=== PATIENT | female | born 1990 | race Caucasian/White ===

== ENCOUNTER 2017-05-05 08:59 | Inpatient (IN) | payer BC ==
[2017-05-14 23:10] VITALS: BMI 38.3
[2017-05-15] MEDS ORDERED: Zolpidem Tartrate 5 MG TAB PO PRN (00:04)
[2017-05-15] MEDS ORDERED: Ondansetron HCl/PF 4 MG/2 ML Vial IVP PRN ×2 (00:04→19:57)
[2017-05-15] MEDS ORDERED: Promethazine HCl 25 MG/ML VIAL IM PRN ×2 (00:04→19:57)
[2017-05-15 00:27] LABS: Mean Platelet Volume 7.5 fL (7.4-10.4); Red Blood Cell (RBC) Count 3.94 mill/uL (4.20-5.40); White Blood Cell (WBC) Count 11.2 thou/uL (4.8-10.8)
[2017-05-15] MEDS: Lactated Ringer's 1,000 ML IV SCH ×3 (08:00→20:20)
[2017-05-15] MEDS ORDERED: LR 500 ML/Oxytocin 10 units 500 ML ONE (08:13)
[2017-05-15] MEDS ORDERED: LR / Pitocin 40 units/1000 ml 1,000 ML ONE (12:48)
[2017-05-15] MEDS ORDERED: Lidocaine 1% (PF) 30 ML VIAL ONE (12:48)
[2017-05-15] MEDS ORDERED: Fentanyl 4 mcg/Marc 0.1% Cadd 100 ML ONE (19:23)
[2017-05-15] MEDS ORDERED: Eucerin (Mineral Oil/Petrolatum,White) 30 gm Jar TOP PRN (19:57)
[2017-05-15] MEDS ORDERED: ePHEDrine/0.9% NaCl/PF SYRINGE 50 mg/10 ml SLOW IVP PRN (19:57)
[2017-05-15] MEDS ORDERED: diphenhydrAMINE 50 MG/ML VIAL IVP PRN (19:57)
[2017-05-15] MEDS ORDERED: Lactated Ringer's 500 ML IV PRN (19:57)
[2017-05-15] MEDS ORDERED: Acetaminophen 325 MG TAB PO PRN (19:57)
[2017-05-15] MEDS ORDERED: Naloxone HCl 0.4 mg/ml Vial IVP PRN ×2 (19:57)
[2017-05-15] MEDS ORDERED: Fentanyl 4mcg/Marcaine 0.1% Cassette 100 ML EPIDURAL SCH (20:00)
[2017-05-15] MEDS ORDERED: Communication Order-Pharmacy FS SCH (20:00)
[2017-05-15] MEDS ORDERED: LR / Pitocin 40 units/1000 ml 40 UNITS/1,000 ML BAG IV SCH (23:45)
[2017-05-15] MEDS ORDERED: LR 500 ML/Oxytocin 10 units 500 ML IV SCH ×2 (23:45)
[2017-05-15] MEDS ORDERED: Lidocaine 1% (PF) 30 ML VIAL SC PRN (23:45)
[2017-05-15] MEDS ORDERED: Misoprostol 200 MCG TAB RC PRN (23:45)
[2017-05-15] MEDS ORDERED: Carboprost 250 MCG/ML AMP IM PRN (23:45)
[2017-05-15] MEDS ORDERED: Ibuprofen 800 MG TAB PO PRN (23:45)
[2017-05-16] MEDS ORDERED: Bupivacaine 0.25% HCL 30 ML VIAL ONE (01:00)
[2017-05-16] MEDS ORDERED: Sodium Chloride 0.9% 1,000 ML IV SCH (01:15)
[2017-05-16 03:21] LABS: Hematocrit 26.9 % (36.0-47.0); Mean Platelet Volume 7.1 fL (7.4-10.4); Red Blood Cell (RBC) Count 3.03 mill/uL (4.20-5.40); White Blood Cell (WBC) Count 28.7 thou/uL (4.8-10.8)
[2017-05-16 03:24] LABS: Fibrinogen 445 mg/dL (253-463); PTT 26.1 SEC (22.9-36.1); Prothrombin Time 13.3 SEC (12.0-14.7)
[2017-05-16] MEDS ORDERED: LR / Pitocin 40 units/1000 ml 1,000 ML IV SCH (03:47)
[2017-05-16] MEDS ORDERED: Adacel (T-DAP) 0.5 ML VIAL IM ONE (03:47)
[2017-05-16] MEDS ORDERED: diphenhydrAMINE 25 MG CAP PO PRN (03:47)
[2017-05-16] MEDS ORDERED: Bisacodyl 10 MG SUPP PR PRN (03:47)
[2017-05-16] MEDS ORDERED: Lanolin Ointment 7 GM TUBE TOP PRN (03:47)
[2017-05-16] MEDS ORDERED: Milk Of Magnesia 30 ML UDCUP PO PRN (03:47)
[2017-05-16] MEDS ORDERED: Ondansetron HCl/PF 4 MG/2 ML Vial IVP PRN (03:47)
[2017-05-16] MEDS: Ibuprofen 800 MG TAB PO SCH ×3 (04:36→21:42)
[2017-05-16] MEDS: HYDROcodone/Acetaminophen 5/325 mg Tablet PO PRN ×2 (08:38→18:51)
[2017-05-16] MEDS: Prenatal Vitamin 1 TAB PO SCH (08:38)
[2017-05-16] MEDS: Ferrous Sulfate 325 MG TAB PO SCH ×2 (08:38→17:03)
[2017-05-16] MEDS: Docusate (Surfak) 240 MG CAP PO SCH ×2 (08:39→21:42)
--- NOTE | 2017-05-16 09:59 | OP ---
DELIVERY SUMMARY DATE OF DELIVERY: 05/16/2017 PREOPERATIVE DIAGNOSIS: A 41-week intrauterine . POSTOPERATIVE DIAGNOSES: A 41-week intrauterine as well as bradycardia, vaginal and labial lacerations and hemorrhage. PROCEDURE PERFORMED: A vacuum assisted vaginal delivery, laceration repair, and management of postp artum hemorrhage. SURGEON: Phuong Varela M.D. ANESTHESIA: Epidural. ESTIMATED BLOOD LOSS: 1000 mL. BRIEF DELIVERY SUMMARY: This is a 27-year-old G1 now P1 who presented for induction of labor for po st-dates. She received a balloon on the night of the and responded quite well. She was 5 cm o n the morning of the and was started on Pitocin. She progressed slowly throughout the course o f the day and in the evening opted for epidural anesthesia after which time her labor progressed thr oughout, more quickly. She progressed to complete and pushing. well being throughout the lab or course was reassuring. She did have some variable decelerations, but nothing concerning. She be nina pushing and during the course of pushing, she started to have some additional deep variable dece lerations down into the 80s and 90s, lasting 30 seconds to a minute associated with pushing. I arri kun on labor and delivery, we continued pushing at which time the decelerations became more prolonge d and she had an episode of 5 to 6 minutes of bradycardia in the 80s and 90s, at which time, v acuum assisted delivery was attempted. The station at the time of application of the vacuum w as +3 to +4, the vacuum was applied, taking care to exclude maternal tissues as well as to exclude t he scalp clip that was on place, suction was taken into the yellow zone. With the next contra ction, downward traction was applied, after suction was taken into the green zone. The vacuum was a pplied through a total of one contraction, three pushes with concurrent pulling effecting delivery o f the vertex. The vacuum was then promptly removed. Shoulders and body easily followed and t he was placed on mother's abdomen. Apgars were 8 at 1 minute and 9 at 5 minutes. At the parents request, the umbilical cord was delayed and being clamped, but was doubly clamped and cu t eventually and the infant was taken to the warmer. Attention was turned to mom and was having jayant e rather brisk vaginal bleeding. Placenta delivered spontaneously and intact with a 3-vessel umbili bucky cord followed by large gush of blood. This improved with bimanual massage; however, anytime I l et go of the uterus, it became boggy and the bleeding picked up again. She was given 800 mcg of Cyt otec as well as a dose of Methergine and a low dose of Hemabate after which the uterine tone respond ed quite well. She also had bilateral labial lacerations, one of which had an arterial component as well as bilateral posterior vaginal lacerations not involving the perineum. Also one of which have an arterial component these were quickly sutured to get the bleeding under control and then sutured in normal running fashion using 2-0 Vicryl suture for all 4 repairs with excellent hemostasis as th e end result. During the course of her bleeding, a second IV was started. Labs were sent. Initial ly her blood pressure shortly after delivery was in the 80s/40s with a pulse little over 110. She h as been bolused IV fluid at that point in time Pitocin through one IV and a second IV was started wi th normal saline being bolus as well after which time her blood pressures came up into the 100s over the 50s to 60s and her pulse came down into the 90s, again the bleeding came under control with all of the above measures. Mom and baby were left with the nurse in excellent condition and attempting to breast feed.
[2017-05-16] MEDS ORDERED: Benzocaine/Menthol 20-0.5% 60 ML CAN TOP PRN (12:22)
[2017-05-17 00:12] VITALS: TEMP 98.3
[2017-05-17 05:12] LABS: Hematocrit 21.2 % (36.0-47.0); Mean Platelet Volume 6.6 fL (7.4-10.4); Red Blood Cell (RBC) Count 2.35 mill/uL (4.20-5.40); White Blood Cell (WBC) Count 15.2 thou/uL (4.8-10.8)
[2017-05-17] MEDS: Ibuprofen 800 MG TAB PO SCH ×2 (06:04→14:26)
[2017-05-17 08:24] VITALS: BP 97/54
[2017-05-17] MEDS: Ferrous Sulfate 325 MG TAB PO SCH (08:52)
[2017-05-17] MEDS: Prenatal Vitamin 1 TAB PO SCH (08:52)
[2017-05-17] MEDS: Docusate (Surfak) 240 MG CAP PO SCH (08:52)
== END 2017-05-17 17:09 | disposition home or self-care (01) | DRG 768 ==
LOC: EDSTATUS 13:29 → L&D 05-14 22:18 → 3SW 05-16 03:21
PROVIDERS: ADMIT Family Medicine; ATTEND Family Medicine
PROC: 10D07Z6 Extraction of Products of Conception, Vacuum, Via Natural or Artificial Opening (ICD-10-PCS; principal; 2017-05-15)
PROC: 0W3R7ZZ Control Bleeding in Genitourinary Tract, Via Natural or Artificial Opening (ICD-10-PCS; 2017-05-15)
PROC: 0KQM0ZZ Repair Perineum Muscle, Open Approach (ICD-10-PCS; 2017-05-15)
PROC: 0UQG7ZZ Repair Vagina, Via Natural or Artificial Opening (ICD-10-PCS; 2017-05-15)
PROC: 0U7C7ZZ Dilation of Cervix, Via Natural or Artificial Opening (ICD-10-PCS; 2017-05-15)
PROC: 3E0P3VZ Introduction of Hormone into Female Reproductive, Percutaneous Approach (ICD-10-PCS; 2017-05-15)
DX: O48.0 Post-term pregnancy (principal); O71.4 Obstetric high vaginal laceration alone; O72.1 Other immediate postpartum hemorrhage; O70.1 Second degree perineal laceration during delivery; O76 Abnormality in fetal heart rate and rhythm complicating labor and delivery; Z3A.41 41 weeks gestation of pregnancy; Z37.0 Single live birth; O63.1 Prolonged second stage (of labor)
CPT/HCPCS: 36415; 85027; 85049; 85300; 85362; 85379; 85384; 85610; 85730; 86780; 87340; C1726; J0595; J2001; J2210; J3490; J7120; S0020

== ENCOUNTER 2018-10-20 02:58 | Inpatient (IN) | payer OTHER ==
[2018-10-20 03:29] VITALS: BMI 37.5
[2018-10-20] MEDS ORDERED: Butorphanol Tartrate 1 MG/ML VIAL SLOW IVP PRN (03:47)
[2018-10-20] MEDS ORDERED: Ondansetron PF 4 MG/2 ML Vial IVP PRN ×2 (03:47→05:15)
[2018-10-20] MEDS ORDERED: Promethazine HCl 25 MG/ML VIAL IM PRN ×2 (03:47→05:15)
[2018-10-20] MEDS ORDERED: Lactated Ringer's 1,000 ML IV SCH (03:47)
[2018-10-20] MEDS: Lactated Ringer's 1,000 ML IV SCH ×2 (04:05→15:54)
[2018-10-20 04:17] LABS: Hemoglobin 11.8 g/dL (12.0-16.0); Mean Corpuscular Hemoglobin 30.1 pg (27.0-31.0); Mean Corpuscular Volume 85.9 fL (78.0-98.0); Platelet Count 206 thou/uL (130-400); Red Blood Cell (RBC) Count 3.91 mill/uL (4.20-5.40); White Blood Cell (WBC) Count 13.2 thou/uL (4.8-10.8)
[2018-10-20] MEDS ORDERED: Fentanyl 4 mcg/Bup 0.1% Cadd 100 ML ONE (04:22)
[2018-10-20 04:53] LABS: Hep B Surf Ag Non-Reactive S/CO (NonReactive)
[2018-10-20 04:54] LABS: Syphilis Antibody Nonreactive (Nonreactive); Syphilis Antibody Index 0.02 S/CO (<1.00 Non-Reactive)
[2018-10-20] MEDS ORDERED: Acetaminophen 325 MG TAB PO PRN (05:15)
[2018-10-20] MEDS ORDERED: Communication Order-Pharmacy FS SCH (05:15)
[2018-10-20] MEDS ORDERED: Naloxone HCl 0.4 mg/ml Vial IVP PRN ×2 (05:15)
[2018-10-20] MEDS ORDERED: Eucerin (Mineral Oil/Petrolatum,White) 30 gm Jar TOP PRN (05:15)
[2018-10-20] MEDS ORDERED: diphenhydrAMINE 50 MG/ML VIAL IVP PRN (05:15)
[2018-10-20] MEDS ORDERED: ePHEDrine/0.9% NaCl/PF SYRINGE 50 mg/10 ml SLOW IVP PRN (05:15)
[2018-10-20] MEDS ORDERED: Fentanyl 4 mcg/Bupivacaine 0.1% Cassette 100 ML EPIDURAL SCH (05:15)
[2018-10-20] MEDS ORDERED: Lactated Ringer's 500 ML IV PRN (05:15)
[2018-10-20] MEDS ORDERED: NS w/ Oxytocin 10 units 500 ML ONE (07:06)
[2018-10-20] MEDS ORDERED: NS w/ Oxytocin 10 units 500 ML IVPB SCH (07:30)
[2018-10-20] MEDS ORDERED: NS / Oxytocin 40 units/1000ml 1,000 ML ONE (09:26)
[2018-10-20] MEDS ORDERED: Bupivacaine/Epinephrine 0.25% 30 ML VIAL ONE (11:11)
[2018-10-20] MEDS ORDERED: Misoprostol 200 MCG TAB ONE (11:20)
[2018-10-20] MEDS ORDERED: NS / Oxytocin 40 units/1000ml 1,000 ML IV SCH (15:07)
[2018-10-20] MEDS ORDERED: Adacel (T-DAP) 0.5 ML SYRINGE IM ONE (15:07)
[2018-10-20] MEDS ORDERED: Bisacodyl 10 MG SUPP PR PRN (15:07)
[2018-10-20] MEDS ORDERED: Benzocaine-Menthol 82.5 ML CAN TOP PRN (15:07)
[2018-10-20] MEDS ORDERED: HYDROcodone/Acetaminophen 5/325 mg Tablet PO PRN (15:07)
[2018-10-20] MEDS ORDERED: Milk Of Magnesia 30 ML UDCUP PO PRN (15:07)
[2018-10-20] MEDS: Ibuprofen 800 MG TAB PO SCH ×2 (15:37→21:25)
[2018-10-20] MEDS: Ferrous Sulfate 325 MG TAB PO SCH (15:55)
[2018-10-20] MEDS: Docusate Calcium (SURFAK) 240 MG CAP PO SCH (21:25)
[2018-10-21] MEDS: Ibuprofen 800 MG TAB PO SCH ×2 (04:42→12:06)
[2018-10-21] MEDS: Ferrous Sulfate 325 MG TAB PO SCH (07:43)
[2018-10-21] MEDS: Docusate Calcium (SURFAK) 240 MG CAP PO SCH (09:20)
[2018-10-21 11:24] VITALS: BP 105/60; TEMP 98.4
--- NOTE | 2018-10-22 09:07 | PDOC.PP ---
Post Progress Note Post Day #: 1 - late entry - this reflects the patient on 10/21/18 at 0800 Subjective: Doing well, no complaints, . Lochia normal. No pain. PO intake tolerated: yes Flatus: yes Ambulation: yes Weight Weight 240 lb - Physical Examination General: NAD Cardiovascular: no m/r/g, RRR Respiratory: clear to auscultation bilaterally, non-labored breathing Abdominal: + bowel sounds, lochia, no distention, appropriately TTP Result Diagrams: 10/20/18 03:57 Additional Labs: Post Labs Blood Type O POSITIVE 10/20/18 03:57 Hep Bs Antigen Non-Reactive S/CO (NonReactive) 10/20/18 03:57 (1) Vaginal delivery Code(s): O80 - ENCOUNTER FOR FULL-TERM UNCOMPLICATED DELIVERY Status: Acute - Assessment/Plan Routine PP care D/C home at 24 hours PP F/U in 6 weeks
== END 2018-10-21 13:44 | disposition home or self-care (01) | DRG 807 ==
LOC: L&D/OP 02:58 → L&D 03:48 → 3SW 15:57
PROVIDERS: ADMIT Family Medicine; ATTEND Family Medicine
PROC: 10E0XZZ Delivery of Products of Conception, External Approach (ICD-10-PCS; principal; 2018-10-20)
PROC: 10907ZC Drainage of Amniotic Fluid, Therapeutic from Products of Conception, Via Natural or Artificial Opening (ICD-10-PCS; 2018-10-20)
DX: O48.0 Post-term pregnancy (principal); Z37.0 Single live birth; Z3A.40 40 weeks gestation of pregnancy; O77.0 Labor and delivery complicated by meconium in amniotic fluid
CPT/HCPCS: 36415; 51702; 85027; 86780; 86850; 86900; 86901; 87340; 99285